=== PATIENT | female | born 1945 | race American Indian/Alaskan Native ===

== ENCOUNTER 2018-07-12 12:00 | Emergency (ER) | payer OTHER, MEDICARE ==
[2018-07-12 12:00] VITALS: BMI 37.2
[2018-07-12 12:28] VITALS: BP 137/84; PULSE 75; TEMP 98.5
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
[2018-07-12 19:00] VITALS: RESP 19; O2SAT 98
== END 2018-07-12 15:29 | disposition home or self-care (01) ==
LOC: ED 12:00
DX: M54.2 Cervicalgia (principal); M54.9 Dorsalgia, unspecified; V49.9XXA Car occupant (driver) (passenger) injured in unspecified traffic accident, initial encounter; I10 Essential (primary) hypertension